=== PATIENT | female | born 1955 | race Caucasian/White ===

== ENCOUNTER → 2018-05-26 | Outpatient (CLI) | payer OTHER ==
--- NOTE | 2018-05-26 08:45 | Diagnostic Imaging Report ---
Right upper quadrant abdominal ultrasound. History: Gallbladder polyp identified on prior outside ultrasound dated 12/30/2017. Comparison: Images are not available to compare with; only the report can be reviewed. Discussion: Transverse and longitudinal images of the right upper quadrant of the abdomen were obtained demonstrating a liver of normal size and echogenicity measuring 15.1 cm in length. There is no evidence of a focal hepatic mass. The portal vein is patent with hepatopetal flow and is within normal limits measuring 14 mm in diameter. The biliary tree is within normal limits with the common bile duct measuring 4 mm in diameter. The gallbladder is normal without evidence of wall thickening, sludge, stones or pericholecystic fluid. No gallbladder wall polyps are seen. There is a prominent gallbladder fold. The sonographic Ness's sign was negative. The right kidney is normal in size and echogenicity without evidence of hydronephrosis, stones, or mass and measures 11.3 cm in length. The pancreatic <body and tail> are visualized and are normal in appearance. The abdominal aorta is within normal limits. There is no evidence of free fluid. IMPRESSION: Normal right upper quadrant ultrasound. Signed by: Dr. Hernandez Barragan DO on 05/26/2018 8:42 AM
== END ==
LOC: US 07:03
PROVIDERS: ATTEND Family Medicine
DX: K82.4 Cholesterolosis of gallbladder (principal)
CPT/HCPCS: 76705